=== PATIENT | male | born 1940 | race Caucasian/White ===

== ENCOUNTER 2016-11-28 15:53 | Observation (INO) | payer MEDICARE, MEDICAID ==
[2016-11-28 16:12] LABS: #Basophils 0.1 thou/uL (0.0-0.2); #Eosinphils 0.1 thou/uL (0.0-0.7); #Monocytes 0.8 thou/uL (0.11-0.59); #Neutrophils 8.8 thou/uL (1.40-6.50); %Basophils 1.1 % (0.0-1.0); %Eosinophils 0.6 % (0.0-10.0); %Lymphocytes 23.4 % (21.0-51.0); %Monocytes 6.2 % (0.0-10.0); Hematocrit 38.5 % (42.0-52.0); Mean Platelet Volume 8.2 fL (7.4-10.4); White Blood Cell (WBC) Count 12.8 thou/uL (4.8-10.8)
[2016-11-28] MEDS ORDERED: Regadenoson 0.4 MG/5 ML SYRINGE ONE (16:24)
--- NOTE | 2016-11-28 16:43 | RAD ---
FRONTAL RADIOGRAPH CHEST 11/28/16 COMPARISON: 10/17/11 HISTORY: Chest pain. FINDINGS: There is increased linear interstitial density and pulmonary hyperinflation, stable. Cervical spine hardware is present. Dorsal column stimulator lead overlies the mid thoracic spine. There is atheros clerotic calcification in the aortic arch. There is no pneumothorax, pleural fluid, focal consolidat ion or alveolar edema. IMPRESSION: No acute findings. Chronic appearing findings as described above. POS: NOLAN
[2016-11-28] MEDS ORDERED: Nitroglycerin 0.4 MG TAB (25 Tab Bottle) ONE (16:59)
[2016-11-28 17:45] LABS: ALT (SGPT) 14 U/L (8-55); AST (SGOT) 12 U/L (5-34); Alkaline Phosphatase 87 U/L (40-150); Anion Gap 13 mmol/L (10-20); BUN (Urea Nitrogen) 18 mg/dL (8.4-25.7); Bilirubin, Total 0.6 mg/dL (0.2-1.2); CK (CPK) 75 U/L (30-200); Calc. Creatinine Clearance 0 mL/min (70-130); Calcium 9.6 mg/dL (7.8-10.44); Carbon Dioxide 27 mmol/L (23-31); Chloride 104 mmol/L (98-107); Estimated GFR-MDRD 58; Globulin 2.5 g/dL (2.4-3.5); Lipase 53 U/L (8-78); Protein, Total 6.3 g/dL (5.8-8.1)
[2016-11-28 17:46] LABS: Troponin I Less than 0.010 ng/mL (< 0.028)
[2016-11-28] MEDS ORDERED: Ondansetron HCl/PF 4 MG/2 ML Vial IVP PRN ×2 (20:21→21:09)
[2016-11-28] MEDS ORDERED: Ondansetron ODT 4 MG TAB SL PRN (20:21)
[2016-11-28 20:47] LABS: Troponin I Less than 0.010 ng/mL (< 0.028)
[2016-11-28] MEDS ORDERED: Nitroglycerin 0.4 MG TAB (25 Tab Bottle) PO PRN (21:09)
[2016-11-28] MEDS ORDERED: hydrALAZINE 20 MG/ML VIAL SLOW IVP PRN (21:09)
[2016-11-28] MEDS ORDERED: Dextrose 50% Abboject 50 ML SYRINGE SLOW IVP PRN (21:09)
[2016-11-28] MEDS ORDERED: Dextrose 5% in Water 1,000 ML IV PRN (21:09)
[2016-11-28] MEDS ORDERED: Ondansetron ODT 4 MG TAB PO PRN (21:09)
[2016-11-28] MEDS ORDERED: HumaLOG 300 UNITS/3 ML VIAL SC PRN ×2 (21:09)
[2016-11-28] MEDS ORDERED: cloNIDine 0.1 MG TAB PO PRN (21:09)
[2016-11-28] MEDS ORDERED: Acetaminophen 500 MG TAB PO PRN (21:09)
[2016-11-28 23:29] LABS: Troponin I Less than 0.010 ng/mL (< 0.028)
[2016-11-29 01:08] LABS: Troponin I Less than 0.010 ng/mL (< 0.028)
--- NOTE | 2016-11-29 01:46 | HP ---
PRIMARY CARE PROVIDER: [facility] in [place], [place]. PRIMARY ORE MINER BLASTING: Dejon Joyce M.D. CHIEF COMPLAINT: Chest pain. HISTORY OF PRESENT ILLNESS: This is a 76-year-old male who was referred to [facility] Emergency Room by Dr. Joyce after patient was seen in his office on 11/29/19 17. The patient states he has had recurrent chest pain requiring multiple doses of nitroglycerin at home over the last several weeks concerning him for worsening heart failure or coronary artery dise ase. The patient does admit to a longstanding history of coronary artery disease status post cardia c stent placement in 2012 to the obtuse marginal branch. The patient states he has been compliant w ith his chronic medication regimen; however, apparently was placed on hospice, unbeknownst to him by a provider out of [place], [place] and states he was on hospice for approximately 7 months before be ing released. The patient is unsure why he was on hospice and states he was unable to secure follow up to Dr. Joyce during the last several months to assess his coronary status. The patient adam es any specific fever, chills, increased cough, congestion, but does states that he has \\\\"black marielle g\\\\" and COPD and uses home inhalers. The patient denies any recent exposure history, trauma, injur y or decreased exercise tolerance. The patient does state he ambulates with the use of four-wheeled rolling walker, but is short-winded with mild exertion. The patient denies any specific increased lower extremity edema, increased weight gain or dietary indiscretion. 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 The patient presented to the emergency room and receiving a third d ose of nitroglycerin with resolution of symptoms. Initial EKG performed in the emergency room shows sinus mechanism without acute ST-T wave changes. The patient was referred to the Hospitalist Roberto jimenez for evaluation. PAST MEDICAL HISTORY: 1. Coronary artery disease status post cardiac stent placement to the obtuse marginal in 2012. 2. Diabetes mellitus type 2 on oral hypoglycemics. 3. History of myocardial infarction. 4. Hypertension. 5. Dyslipidemia. 6. Osteoarthritis. 7. Glaucoma. 8. Depression. 9. History of migraine headaches. 10. Chronic obstructive pulmonary disease/\\\\"black lung\\\\". PAST SURGICAL HISTORY: 1. Status post cardiac stent placement to the obtuse marginal in 2012. 2. Status post pancreatic surgery. 3. Status post anterior cervical diskectomy with arthrodesis and fusion of the cervical spine. CURRENT MEDICATIONS: 1. BuSpar 10 mg p.o. t.i.d. 2. Plavix 75 mg 1 tab p.o. daily. 3. Donepezil 10 mg 1 tab p.o. at bedtime. 4. Protonix 40 mg p.o. daily. 5. Sertraline 150 mg p.o. daily. 6. Tamsulosin 0.4 mg p.o. at bedtime. 7. Trazodone 100 mg 2 tablets p.o. at bedtime. 8. Oxycodone/acetaminophen 7.5/325 mg 1 tab p.o. q.4-6 h. p.r.n. 9. Methadone 10 mg 1 tab p.o. t.i.d. 10. Morphine sulfate, dose unknown. ALLERGIES: PENICILLIN. FAMILY HISTORY: Positive for hypertension and coronary artery disease. SOCIAL HISTORY: The patient resides near [facility] [place]. Smokes cigars daily. No c urrent alcohol or illicit drug use. [employer] . REVIEW OF SYSTEMS: The following complete review of systems was negative, unless otherwise mentione d in the HPI or below: Constitutional: Weight loss or gain, ability to conduct usual activities. Skin: Rash, itching. Eyes: Double vision, pain. ENT/Mouth: Nose bleeding, neck stiffness, pain, tenderness. Cardiovascular: Palpitations, dyspnea on exertion, orthopnea. Respiratory: Shortness of breath, wheezing, cough, hemoptysis, fever or night sweats. Gastrointestinal: Poor appetite, abdominal pain, heartburn, nausea, vomiting, constipation, or diar nasra. Genitourinary: Urgency, frequency, dysuria, nocturia. Musculoskeletal: Pain, swelling. Neurologic/Psychiatric: Anxiety, depression. Allergy/Immunologic: Skin rash, bleeding tendency. Otherwise, negative except as stated per HPI. PHYSICAL EXAMINATION: VITAL SIGNS: Currently, blood pressure 117/68, pulse 85, respiratory rate 22, temperature 97.8 degr ees Fahrenheit, O2 saturation 99% on 2 liters per minute by nasal cannula. GENERAL APPEARANCE: This is a 76-year-old male, alert and oriented x3, pleasant, conversa nt, in no acute distress. HEENT: Pupils are equal, round, and reactive to light and accommodation. Extraocular muscles are i ntact. No scleral icterus, no conjunctival injection. Nares patent. OP is clear. Teeth in fair r epair. NECK: Supple, no cervical adenopathy, no thyromegaly, no carotid bruits, no JVD appreciated. Cervi ko spine with full active and passive range of motion. CHEST: Lungs are clear to auscultation bilaterally with diminished breath sounds in the bases. CARDIOVASCULAR: S1, S2 with distant heart sounds. ABDOMEN: Obese, soft, nontender, nondistended. Bowel sounds are positive in all four quadrants. T here is no hepatosplenomegaly, no abdominal bruits, no rebound or guarding appreciated. EXTREMITIES: Warm and dry with fair turgor. No clubbing, cyanosis or asymmetric edema appreciated. Pulses palpable distally at the dorsalis pedis, posterior tibial, and popliteal arteries bilateral ly. Capillary refill less than 2 seconds. NEUROLOGIC: Cranial nerves II-XII are grossly intact. No focal or lateralizing signs appreciated. PERTINENT LABORATORY AND X-RAY FINDINGS: Complete metabolic profile within normal limits. Troponin I negative x1. BNP is 41. CBC showed a white blood cell count 12.8, hemoglobin 13, hematocrit 39, MCV 99, platelet count 239 with normal differential. Portable chest x-ray dated 11/28/2016 showed chronic changes without acute process. EKG dated 11/28/2016 by my interpretation shows sinus mechan ism with heart rates in the 60s. Normal R-wave progression noted in the precordial leads. Left axi s deviation noted. No acute ST-T wave changes appreciated. ASSESSMENT AND PLAN: 1. Chest pain. The patient will be placed in observation status. We will continue aspirin 325 mg daily. Serial troponin I q.3 hours x2. We will obtain 2D transthoracic echocardiogram. Consider c onsultation with Cardiology Service if chest pain recurs. Nitroglycerin 0.4 mg sublingually every 5 minutes p.r.n. chest pain. 2. Chronic obstructive pulmonary disease. Chronic and stable. No evidence to suggest acute exacer bation. Continue supportive measures. Bronchodilator therapy p.r.n. 3. Coronary artery disease, status post cardiac stent placement to the obtuse marginal in 2012. Co ntinue Plavix 75 mg p.o. daily. See #1 above. No evidence to suggest acute coronary syndrome. 4. Chronic pain syndrome. We will confirm home pain medication regimen. Symptomatic and supportiv e measures. 5. Gastroesophageal reflux disease. Continue Pepcid 20 mg p.o. b.i.d. 6. Prophylaxis. Sequential compression devices while in bed. Pepcid 20 mg p.o. b.i.d. 7. Code status is full. Surrogate medical decision maker is the patient's son.
[2016-11-29 04:02] LABS: Anion Gap 9 mmol/L (10-20); BUN (Urea Nitrogen) 17 mg/dL (8.4-25.7); Calc. Creatinine Clearance 0 mL/min (70-130); Calcium 9.4 mg/dL (7.8-10.44); Carbon Dioxide 29 mmol/L (23-31); Chloride 105 mmol/L (98-107); Cholesterol 122 mg/dl (< 200 Desired); Estimated GFR-MDRD 58; LDL Cholesterol, Calculated 70 mg/dL
[2016-11-29 04:07] LABS: Troponin I Less than 0.010 ng/mL (< 0.028)
[2016-11-29 04:12] LABS: Band 4 % (5-11); Mean Platelet Volume 8.1 fL (7.4-10.4); Neutrophil 58 % (42-75); Red Blood Cell (RBC) Count 3.41 mill/uL (4.70-6.10); White Blood Cell (WBC) Count 8.6 thou/uL (4.8-10.8)
[2016-11-29] MEDS: Famotidine 20 MG TAB PO SCH ×2 (08:46→20:35)
[2016-11-29] MEDS ORDERED: Aspirin 325 MG TAB PO SCH (09:00)
[2016-11-29 12:48] VITALS: BMI 30.6
--- NOTE | 2016-11-29 16:15 | PDOC.PN ---
- Subjective Encounter Start Date: 11/29/16 Encounter Start Time: 16:00 Subjective: f/u for CP and ASSOCIATE ATTORNEY showing no reversible defects. No current CP. -: c/o chronic back pain symptoms. - Objective Resuscitation Status: Resuscitation Status FULL:Full Resuscitation MAR Reviewed: Yes Vital Signs & Weight: Vital Signs (12 hours) Temp Pulse Resp BP BP Pulse Ox 11/29/16 14:49 97.6 F 92 20 122/66 98 11/29/16 13:07 130/74 11/29/16 11:13 97.8 F 76 20 120/66 97 11/29/16 08:42 97.6 F 86 22 H 134/73 97 11/29/16 08:00 97.6 F 86 22 H 134/73 97 Weight Weight 245 lb I&O: 11/28/16 11/29/16 11/30/16 06:59 06:59 06:59 Intake Total 260 Output Total 1 Balance 259 Result Diagrams: 11/29/16 03:18 11/29/16 03:18 Additional Labs: Accuchecks 11/29/16 11/29/16 11/28/16 10:46 06:38 22:00 POC Glucose 106 108 109 Laboratory Tests 11/28/16 11/28/16 11/29/16 16:00 22:54 00:25 WBC 12.8 H Hgb 13.0 L Troponin I Less than 0.010 Less than 0.010 Triglycerides Cholesterol LDL Cholesterol, Calc HDL Cholesterol 11/29/16 11/29/16 03:18 03:18 WBC Hgb Troponin I Less than 0.010 Triglycerides 106 Cholesterol 122 LDL Cholesterol, Calc 70 HDL Cholesterol 31 Radiology Reviewed by me: Yes (ASSOCIATE ATTORNEY - no reversible or fixed ischemia, no EF calculated) EKG Reviewed by me: Yes (Tele - SR in 60's) Phys Exam - Physical Examination Constitutional: NAD HEENT: PERRLA, oral pharynx no lesions Neck: no JVD, supple Respiratory: no wheezing, clear to auscultation bilateral Cardiovascular: RRR Gastrointestinal: soft, non-tender, no distention, positive bowel sounds Musculoskeletal: no edema, pulses present Neurological: normal sensation, moves all 4 limbs Psychiatric: A&O x 3 Skin: normal turgor, cap refill <2 seconds Dx/Plan (1) Chest pain Code(s): R07.9 - CHEST PAIN, UNSPECIFIED Status: Acute Comment: ASSOCIATE ATTORNEY negative for reversible ischemia, await 2D echo results (2) COPD (chronic obstructive pulmonary disease) Status: Chronic Comment: Stable, no exacerbation, continue low-flow O2 via NC (3) Chronic back pain Code(s): M54.9 - DORSALGIA, UNSPECIFIED; G89.29 - OTHER CHRONIC PAIN Status: Chronic Comment: Resume home pain medication regimen (4) Macrocytic anemia Code(s): D53.9 - NUTRITIONAL ANEMIA, UNSPECIFIED Status: Chronic Comment: Check B12/Folate in am - Plan social services coordinator, out of bed/ambulate, DVT proph w/SCDs Stable overall -: Resume home Plavix 75mg daily -: D/C ASA -: Resume home pain medications including Methadone -: Await 2D echo results * Likely home in am
[2016-11-29] MEDS ORDERED: METHadone HCl 10 MG TAB PO PRN (16:23)
[2016-11-29] MEDS ORDERED: PROVENTIL INHALER 6.7 G (200 INHALATIONS) INH PRN (16:45)
[2016-11-29] MEDS: metFORMIN 500 MG TAB PO SCH (18:03)
[2016-11-29] MEDS: Morphine IR 10 MG/5 ML UDCUP PO SCH ×6 (18:03→22:57)
--- NOTE | 2016-11-29 18:25 | NM ---
CARDIAC SPECT: 11/29/16 HISTORY: 76-year-old male with chest pain, coronary artery disease, stent placement, CHF, diabetes, hypertens ion, dyslipidemia. TECHNIQUE: A myocardial perfusion scan was performed using the single isotope one day protocol with technetium 99m Sestamibi. 9 millicuries was injected intravenously for the rest exam followed by 30 millicuries for the stress study. Pharmacologic stress with Lexiscan was monitored and interpreted by Mirna Garcia, nurse practitioner. FINDINGS: Homogeneous tracer distribution is seen in the myocardial segments on stress and rest images without fixed or reversible defects. Gating could not be performed due to patient's inconsistent rate and rhythm, thus the LVEF could not be calculated and the wall motion could not be evaluated. IMPRESSION: Normal myocardial perfusion. POS: NOLAN
[2016-11-29] MEDS: oxyCODONE 5 MG TAB PO SCH (20:33)
[2016-11-29] MEDS: Acetaminophen 325 MG TAB PO SCH (20:33)
[2016-11-29] MEDS: Metoprolol Tartrate 25 MG TAB PO SCH (20:34)
[2016-11-29] MEDS: busPIRone HCl 10 MG TAB PO SCH (20:34)
[2016-11-29] MEDS ORDERED: [UNRECOGNIZED DRUG - OTHER] PO SCH (21:00)
[2016-11-29] MEDS ORDERED: OXYCODONE HCL PO SCH (21:00)
[2016-11-29] MEDS ORDERED: Donepezil HCl 5 MG TAB PO SCH (21:00)
[2016-11-29] MEDS ORDERED: traZODone HCl 50 MG TAB PO SCH (21:00)
[2016-11-29] MEDS ORDERED: ACETAMINOPHEN PO SCH (21:00)
[2016-11-30] MEDS: Morphine IR 10 MG/5 ML UDCUP PO SCH ×11 (01:12→15:55)
[2016-11-30] MEDS ORDERED: Sodium Chloride 0.9% 10 ML ONE (08:01)
[2016-11-30] MEDS: oxyCODONE 5 MG TAB PO SCH (08:13)
[2016-11-30] MEDS: busPIRone HCl 10 MG TAB PO SCH ×2 (08:15→16:45)
[2016-11-30] MEDS: metFORMIN 500 MG TAB PO SCH ×2 (08:15→17:47)
[2016-11-30] MEDS: Metoprolol Tartrate 25 MG TAB PO SCH (08:16)
[2016-11-30] MEDS: Famotidine 20 MG TAB PO SCH (08:16)
[2016-11-30] MEDS: Acetaminophen 325 MG TAB PO SCH (08:17)
[2016-11-30] MEDS ORDERED: Finasteride 5 MG TAB PO SCH (09:00)
[2016-11-30] MEDS ORDERED: Potassium Chloride 20 MEQ TAB PO SCH (09:00)
[2016-11-30] MEDS ORDERED: Tamsulosin HCl 0.4 MG CAP PO SCH (09:00)
[2016-11-30] MEDS ORDERED: Clopidogrel Bisulfate 75 MG TAB PO SCH (09:00)
[2016-11-30] MEDS ORDERED: Losartan Potassium 25 MG TAB PO SCH (09:00)
[2016-11-30] MEDS ORDERED: Furosemide 20 MG TAB PO SCH (09:00)
--- NOTE | 2016-11-30 11:14 | DIS ---
DATE OF ADMISSION: 11/28/2016 DATE OF DISCHARGE: 11/30/2016 DISCHARGE DIAGNOSES: 1. Chest pain, noncardiac. 2. History of coronary artery disease with currently normal nuclear stress test and echocardiogram as outlined below. 3. Chronic back pain. 4. Chronic obstructive pulmonary disease. 5. Chronic macrocytic anemia. 6. Diabetes mellitus, type 2. 7. Benign prostatic hypertrophy. 8. Gastroesophageal reflux disease. CONSULTATIONS: None. PROCEDURES: 1. A 2D echocardiogram: Performed on 11/29/2016: EF 50%-55%, E/A reversal suggesting diastolic dy sfunction, [id number] TR, inferior wall hypokinesis. 2. Nuclear stress test: No reversible ischemia. HISTORY AND PHYSICAL: Mr. Silva is a 76-year-old gentleman, who is followed at [facility]. He has a hi story of coronary artery disease, COPD, and a past history of tobacco abuse. He was admitted for ch est pain. Negative biomarkers in the ER. HOSPITAL COURSE: The patient was seen and examined and admitted by Dr. Perkins. Serial cardiac biomar kers were unremarkable. A nuclear stress test was ordered as well as 2D echocardiogram. Those repo rts returned this morning with a normal stress test and echocardiogram with a chronic inferior wall hypokinesis, otherwise preserved EF from previous. The patient had no further chest pain and was st able for discharge with outpatient followup. PHYSICAL EXAMINATION: The patient was seen and examined on the day of discharge. Discharge plan and disposition were discussed with the patient [id number] at the bedside. DISCHARGE MEDICATIONS: Patient is being discharged on known medications. 1. Albuterol 1 puff inhaled q.i.d. p.r.n. 2. Plavix 75 mg daily. 3. Aricept 5 mg at bedtime. 4. Proscar 5 mg daily. 5. Lasix 20 mg daily. 6. DuoNeb 3 nebs q.i.d. 7. Losartan 25 mg daily. 8. Methadone 10 mg p.o. t.i.d. 9. Metoprolol tartrate 25 mg p.o. b.i.d. 10. MSIR 1 mg p.o. 1 hour p.r.n. 11. Oxycodone/acetaminophen 7.5/325 one tablet b.i.d. 12. Protonix 40 mg daily. 13. K-Dur 20 mEq daily. 14. Zoloft 150 mg p.o. at bedtime. 15. Flomax 0.4 mg daily. 16. Buspirone 10 mg p.o. t.i.d. 17. Metformin 500 mg p.o. b.i.d. with meals. 15. Trazodone 200 mg p.o. q.h.s. FOLLOWUP APPOINTMENTS: 1. PCP at the [facility] within a week. 2. All other medical specialists as previously scheduled. DISCHARGE CONDITION: Good. DISPOSITION: The patient being discharged home via private vehicle. The patient is instructed to return to the emergency department if he has any further chest pains.
[2016-11-30] MEDS: Morphine 10 MG/0.5 ML ORAL SYRINGE SL SCH ×3 (14:43→17:18)
[2016-11-30 16:53] VITALS: TEMP 98.4
[2016-11-30 17:11] VITALS: BP 127/60
== END 2016-11-30 18:30 | disposition home or self-care (01) ==
LOC: ERS 15:53 → 2NO 19:18
PROVIDERS: ADMIT Family Medicine; ATTEND Family Medicine
DX: R07.89 Other chest pain (principal); I25.10 Atherosclerotic heart disease of native coronary artery without angina pectoris; J44.9 Chronic obstructive pulmonary disease, unspecified; E11.9 Type 2 diabetes mellitus without complications; K21.9 Gastro-esophageal reflux disease without esophagitis; N40.0 Benign prostatic hyperplasia without lower urinary tract symptoms; I25.2 Old myocardial infarction; E78.5 Hyperlipidemia, unspecified; M19.90 Unspecified osteoarthritis, unspecified site; F32.9 Major depressive disorder, single episode, unspecified; H40.9 Unspecified glaucoma; G43.909 Migraine, unspecified, not intractable, without status migrainosus; F17.290 Nicotine dependence, other tobacco product, uncomplicated; G89.4 Chronic pain syndrome; I11.0 Hypertensive heart disease with heart failure; I50.9 Heart failure, unspecified; D53.9 Nutritional anemia, unspecified; Z79.84 Long term (current) use of oral hypoglycemic drugs; Z79.02 Long term (current) use of antithrombotics/antiplatelets; Z79.891 Long term (current) use of opiate analgesic; Z79.899 Other long term (current) drug therapy; Z88.0 Allergy status to penicillin; Z98.1 Arthrodesis status; Z95.818 Presence of other cardiac implants and grafts; Z98.890 Other specified postprocedural states
CPT/HCPCS: 71010; 78452; 80048; 80053; 80061; 82550; 82553; 82962 ×3; 83690; 83880; 84484 ×4; 85007; 85025; 85027; 90732; 93005; 93017; 93306; 94760 ×3; 96374; 99285; A9500; G0009; G0378; 36415; 36416; 90471; A4216; J2270; J2785

== ENCOUNTER 2018-02-13 13:30 | Outpatient (CLI) | payer MEDICARE, MEDICAID ==
[~2018-02-13 13:30] MED LIST: Iopamidol 370 76% 100 ML VIAL ONE
--- NOTE | 2018-02-13 15:55 | CT ---
CTA OF THE CHEST WITH CONTRAST 02/13/18 COMPARISON: 02/21/16, 07/20/15, 08/06/14. TECHNIQUE: Multiple contiguous axial images were obtained in a CTA of the chest with contrast. 3D sagittal and c oronal MIP reformats were performed. FINDINGS: There is enlargement of the ascending aorta which measures 4.7 cm in greatest dimension. This is mini isidro enlarged compared to multiple recent examinations dating back to 2014. The descending aorta is normal in caliber measuring 3.1 cm in greatest dimension. Atherosclerotic calcifications are seen in the coronary arteries and aorta. No hilar or mediastinal lymphadenopathy are seen. The heart is allison l in size without focal cardiac abnormality. No pneumothorax or pleural effusion are seen. No suspicious pulmonary nodules are seen. No focal infi ltrates are seen in the lungs. The patient is status post cholecystectomy. The other visualized subdi aphragmatic structures are unremarkable. The chest wall soft tissues are unremarkable. Degenerative c hanges are seen in the spine. A spinal stimulation device is seen in the mid thoracic spine. IMPRESSION: Stable aneurysmal dilatation of the ascending aorta. POS: NOLAN
== END 2018-02-13 13:31 | disposition home or self-care (01) ==
LOC: CT 13:30
PROVIDERS: ATTEND Internal Medicine Cardiovascular Disease
DX: I71.2 Thoracic aortic aneurysm, without rupture (principal)
CPT/HCPCS: 71275; 82565